=== PATIENT | male | born 1990 | race Caucasian/White ===

== ENCOUNTER 2019-06-08 20:04 | Emergency (ER) | payer MEDICAID, SELFPAY ==
[~2019-06-08] VITALS: Ht 180.3 cm; Wt 100.0 kg
[2019-06-08] MEDS ORDERED: LEXA5TAB13 PO (20:16)
[2019-06-08] MEDS ORDERED: diphenhydrAMINE INJ 50MG/ML VIAL (J1200) IV STA (21:02)
[2019-06-08] MEDS ORDERED: hydrOXYzine 50 MG TAB PO ONE (21:15)
[2019-06-08] MEDS ORDERED: methylPREDNISolone INJ 125 MG/2 ML VIAL (J2930) IV ONE (21:15)
[2019-06-08 22:39] LABS: BASO # 0.1 10^3/uL (0.0-0.2); BASO % 0.4 % (0.0-1.0); EOS % 0.2 % (0.0-3.0); HEMATOCRIT 42.1 % (42.0-52.0); HEMOGLOBIN 14.5 g/dl (13.5-17.5); LYMPH # 2.2 10^3/uL (1.5-6.5); MEAN CORPUSCULAR HEMOGLOBIN 30.1 pg (27.0-33.0); MEAN CORPUSCULAR HGB CONC 34.4 g/dl (32.0-36.5); MEAN CORPUSCULAR VOLUME 87.5 fl (80.0-96.0); MONO # 1.3 10^3/uL (0.0-0.8); MONO % 9.4 % (0.0-5.0); NEUTROPHILS % 73.9 % (36.0-66.0); PLATELET COUNT, AUTOMATED 248 10^3/uL (150-450); RED BLOOD COUNT 4.81 10^6/uL (4.30-6.10); WHITE BLOOD COUNT 13.6 10^3/uL (4.0-10.0)
[2019-06-08 23:14] LABS: ACETAMINOPHEN LEVEL < 2.0 UG/ML (10.0-30.0); BLOOD UREA NITROGEN 16 MG/DL (7-18); CALCIUM LEVEL 9.2 MG/DL (8.5-10.1); CARBON DIOXIDE LEVEL 28 MEQ/L (21-32); CHLORIDE LEVEL 104 MEQ/L (98-107); CREATININE FOR GFR 1.24 MG/DL (0.70-1.30); ETHYL ALCOHOL (ETHANOL) < 0.003 % (0.000-0.010); GLOMERULAR FILTRATION RATE > 60.0 (>60); GLUCOSE, FASTING 98 MG/DL (70-100); SALICYLATE LEVEL < 1.7 MG/DL (5.0-30.0); SODIUM LEVEL 141 MEQ/L (136-145)
[2019-06-08] MEDS ORDERED: MIRTAZAPINE 15 MG TAB PO STA (23:20)
[2019-06-08 23:22] LABS: AMPHETAMINES LEVEL URINE POSITIVE (NEGATIVE); BARBITURATES URINE NEGATIVE (NEGATIVE); BENZODIAZEPINES URINE NEGATIVE (NEGATIVE); CANNABINOIDS URINE NEGATIVE (NEGATIVE); COCAINE METABOLITE URINE NEGATIVE (NEGATIVE); METHADONE URINE NEGATIVE (NEGATIVE); OPIATES URINE NEGATIVE (NEGATIVE); PHENCYCLIDINE URINE NEGATIVE (NEGATIVE)
[2019-06-08] MEDS ORDERED: HYDR-3363 PO (23:32)
[2019-06-08] MEDS ORDERED: REME15TA2 PO (23:32)
[2019-06-08] MEDS ORDERED: LEXA1TAB PO (23:32)
[2019-06-08] MEDS ORDERED: PRED20TA PO (23:32)
[2019-06-08] MEDS ORDERED: REGL5TAB2 PO (23:36)
[2019-06-08 23:50] VITALS: BP 168/82
== END 2019-06-08 23:51 | disposition home or self-care (01) ==
LOC: M ED 20:04
DX: F41.9 Anxiety disorder, unspecified (principal); L50.9 Urticaria, unspecified; Z79.899 Other long term (current) drug therapy; F17.210 Nicotine dependence, cigarettes, uncomplicated
CPT/HCPCS: 80048; 80307; 84443; 85025; 96374; 96375; 99284; G0480; J1200; J2930

== ENCOUNTER 2019-06-11 11:42 | Inpatient (IN) | payer OTHER, SELFPAY ==
[~2019-06-11] VITALS: Ht 180.3 cm; Wt 96.2 kg
[~2019-06-11 11:42] MED LIST: HYDR-3363 PO; LEXA1TAB PO; LEXA5TAB13 PO; PRED20TA PO; REGL5TAB2 PO; REME15TA2 PO
[2019-06-11] MEDS ORDERED: DEPRESSION MED (11:54)
[2019-06-11 12:12] LABS: HEMATOCRIT 41.7 % (42.0-52.0); HEMOGLOBIN 13.9 g/dl (13.5-17.5); MEAN CORPUSCULAR HEMOGLOBIN 29.4 pg (27.0-33.0); MEAN CORPUSCULAR HGB CONC 33.3 g/dl (32.0-36.5); MEAN CORPUSCULAR VOLUME 88.2 fl (80.0-96.0); PLATELET COUNT, AUTOMATED 250 10^3/uL (150-450); RED BLOOD COUNT 4.73 10^6/uL (4.30-6.10); WHITE BLOOD COUNT 8.5 10^3/uL (4.0-10.0)
[2019-06-11 12:36] LABS: AMPHETAMINES LEVEL URINE POSITIVE (NEGATIVE); BARBITURATES URINE NEGATIVE (NEGATIVE); BENZODIAZEPINES URINE NEGATIVE (NEGATIVE); CANNABINOIDS URINE NEGATIVE (NEGATIVE); COCAINE METABOLITE URINE NEGATIVE (NEGATIVE); METHADONE URINE NEGATIVE (NEGATIVE); OPIATES URINE NEGATIVE (NEGATIVE); PHENCYCLIDINE URINE NEGATIVE (NEGATIVE)
[2019-06-11 12:49] LABS: ACETAMINOPHEN LEVEL < 2.0 UG/ML (10.0-30.0); ALBUMIN 3.9 GM/DL (3.2-5.2); ALT/SGPT 33 U/L (12-78); BILIRUBIN,DIRECT 0.1 MG/DL (0.0-0.2); BILIRUBIN,TOTAL 0.6 MG/DL (0.2-1.0); BLOOD UREA NITROGEN 15 MG/DL (7-18); CALCIUM LEVEL 8.8 MG/DL (8.5-10.1); CARBON DIOXIDE LEVEL 30 MEQ/L (21-32); CHLORIDE LEVEL 103 MEQ/L (98-107); CREATININE FOR GFR 1.08 MG/DL (0.70-1.30); ETHYL ALCOHOL (ETHANOL) < 0.003 % (0.000-0.010); GLOMERULAR FILTRATION RATE > 60.0 (>60); GLUCOSE, FASTING 105 MG/DL (70-100); POTASSIUM SERUM 4.2 MEQ/L (3.5-5.1); SALICYLATE LEVEL < 1.7 MG/DL (5.0-30.0); SODIUM LEVEL 140 MEQ/L (136-145); THYROID STIMULATING HORMONE 0.207 uIU/ML (0.358-3.740); TOTAL PROTEIN 7.3 GM/DL (6.4-8.2)
[2019-06-11] MEDS ORDERED: LISINOPRIL 10 MG TAB PO ONE (13:00)
[2019-06-11] MEDS ORDERED: amLODIPine 5 MG TAB PO ONE (14:15)
[2019-06-11 14:19] VITALS: BP 158/105
[2019-06-11] MEDS ORDERED: MAALOX 30 ML SUSP *UDC PO PRN (17:15)
[2019-06-11] MEDS ORDERED: ACETAMINOPHEN TAB 650MG DOSE (2X325MG) PO PRN (17:15)
[2019-06-11] MEDS ORDERED: HALOPERIDOL 5 MG TAB PO PRN (17:15)
[2019-06-11] MEDS ORDERED: HYDR-3363 PO (18:24)
[2019-06-11] MEDS ORDERED: MIRT1TAB15 PO (18:24)
[2019-06-11] MEDS ORDERED: ESCI10TA2 PO (18:25)
[2019-06-11] MEDS ORDERED: NICOTINE 21MG/24HR 1 EA TRANSDERMAL TD PRN (21:15)
[2019-06-11 21:16] VITALS: BP 132/90
[2019-06-12 06:45] VITALS: BP 127/69
[2019-06-12 08:00] VITALS: BP 127/69
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
[2019-06-12] MEDS ORDERED: BUPRENORPHINE/NALOXONE 2-0.5MG SUBLINGUAL TABLET(SUBOXONE) SL ONE (11:15)
[2019-06-12 16:37] VITALS: BP 123/59
--- NOTE | 2019-06-12 17:11 | HPEPDOC ---
General Date of Admission Jun 11, 2019 at 17:14 Date of Service: Jun 12, 2019 Chief Complaint The patient is a 28-year-old male admitted with a reason for visit of Unspecified Depressive Disorder. History of Present Illness 28-year-old male with no past medical history admitted to inpatient mental health unit for suicidal ideation and severe depression. Patient states that he was recently incarcerated for driving under intoxication and after he was released he expressed suicidal ideations to his mom who brought him today mental health unit. Patient states that he uses heroin and meth. He smokes 1-1/2 packs of cigarettes a day. Patient also states that his grandfather had schizophrenia. He denies any current suicidal ideations. Patient also mentions having high blood pressure once in a while. Home Medications Scheduled Escitalopram Oxalate (Escitalopram Oxalate) 10 Mg Tablet, 15 MG PO DAILY, (Reported) Mirtazapine (Mirtazapine) 15 Mg Tab.rapdis, 15 MG PO QHS, (Reported) Scheduled PRN Hydroxyzine HCl (Hydroxyzine HCl) 25 Mg Tablet, 25 MG PO TID PRN for ANXIETY, (Reported) Allergies Coded Allergies: No Known Allergies (Unverified , 06/08/19) Family History Grandfather with schizophrenia Social History * Smoker: greater than 1 pack/day Alcohol: occationally Psychosocial History: Depression, Emotional problems, Prior suicide attempt, Suicidal thoughts Review of Systems Constitutional: Denies: Chills, Fever, Malaise, Night Sweats, Weakness, Fatigue, Weight Loss, Lethargy, Other Eyes: Denies: Pain, Vision change, Conjunctivae inflammation, Eyelid inflammation, Redness, Other ENT: Denies: Head Aches, Ear Pain, Dysphagia, Sinus Congestion, Post Nasal Drip, Sore Throat, Epistaxis, Other Symptoms Skin: Denies: Rash, Lesions, Jaundice, Bruising, Itching, Dry, Breakdown, Nail Changes, Other Pulmonary: Denies: Dyspnea, Cough, Pleuritic Chest Pain, Other Symptoms Cardiovascular: Denies: Chest Pain, Palpitations, Orthopnea, Paroxysmal Noc. Dyspnea, Edema, Lt Headedness, Other Symptoms Gastrointestinal: Denies: Nausea, Vomiting, Abdominal Pain, Diarrhea, Constipation, Melena, Hematochezia, Other Symptoms Genitourinary: Denies: Dysuria, Frequency, Incontinence, Hematuria, Retention, Other Symptoms Hematologic: Denies: Bruising, Bleeding Excessively, Petecchia, Purpura, Enlarged Lymph Nodes, Other Hematologic Endocrine: Denies: Polydipsia, Polyphagia, Polyuria, Heat Intolerance, Cold Intolerance, Other Endocrine Sx Musculoskeletal: Denies: Neck Pain, Back Pain, Shoulder Pain, Arm Pain, Hand Pain, Leg Pain, Foot Pain, Joint Pain, Muscle Pain, Spasms, Other Symptoms Neurological: Denies: Weakness, Numbness, Incoordination, Change in speech, Confusion, Seizures, Other Symptoms Physical Examination General Exam: Positive: Alert, Cooperative, No Acute Distress Eye Exam: Positive: PERRLA, Conjunctiva & lids normal ENT Exam: Positive: Atraumatic, Mucous membr. moist/pink Neck Exam: Negative: Supple, JVD, thyromegaly, +2 carotid pulse wo bruit, Lymphadenopathy, Other Chest Exam: Positive: Clear to auscultation, Normal air movement Heart Exam: Positive: Rate Normal Abdomen Exam: Positive: Normal bowel sounds Neuro Exam: Positive: Normal Speech, Strength at 5/5 X4 ext Psych Exam: Positive: Mental status NL, Oriented x 3 Vital Signs Vital Signs Date Time Temp Pulse Resp B/P (MAP) Pulse Ox O2 Delivery O2 Flow Rate FiO2 06/12/19 16:37 97.9 89 16 123/59 (80) 06/12/19 08:00 97 06/11/19 17:54 Room Air Assessment/Plan #Depression with suicidal ideation -Continue management as per psychiatry -Patient on mirtazapine and Lexapro #Heroin and meth abuse/withdrawal -Elevated blood pressures due to withdrawal -Management per psych Plan / VTE VTE Prophylaxis Ordered?: No VTE Exclusion Mechanical Proph: Low Risk for VTE JAME RAIN MD Jun 12, 2019 17:11
[2019-06-12] MEDS ORDERED: MIRTAZAPINE 15 MG TAB PO SCH (21:00)
[2019-06-13 06:47] VITALS: BP 126/73
--- NOTE | 2019-06-13 09:12 | MHIPNPDOC ---
[facility] Progress Note Progress Note Date of Service: 06/13/2019 History of Present Illness The patient a 28-year-old man was brought to the emergency room by his mother. He had reportedly been recently released from custodial/shelter and had been sober from heroin for four months. He had relapsed shortly after his release and had been using quite frequently the previous day. His mother reported that he had gathered a large amount of heroin with an intention to overdose on it to . He was brought in and had initially denied that, however, upon meeting with the patient, he did describe having a fair amount of difficulty with suicidal thoughts at that time and had given the bags of heroin to his mother in order to dispose of as he was concerned about his safety. Interval History The patient was met with today. He describes that he feels much better on the Abilify with less mood variation, less anxiety and better ability to socialize and less fatigue and loss of interest. He reports no side effects. Denies tremors, akathisia or GI upset related to his medications. He has attended some groups, but generally remains fairly anxious around others. His mother visited yesterday and it was reportedly a good visit. He declined taking his Remeron, he reports it was not helpful. Discussed about Seroquel and the cost relation, he reports trying Seroquel in the past with negative results and does not wish to try. Review Of Systems As above. Psychotherapy None on this visit. Vital Signs Reviewed. Mental Status Examination General: Well dressed with good hygiene Speech: Spontaneous and fluid Thought processes: Linear and logical MSK: Smooth and coordinated gait, no signs of tremors or involuntary orofacial movements Thought content: Future orientated Abstract reasoning, and computation: Intact Description of associations: Intact Description of abnormal or psychotic thoughts: Denies any suicidal or homicidal ideation. Denies any auditory or visual hallucinations. Does not appear to be r esponding to internal stimuli. Does not appear to be endorsing any bizarre or paranoid ideation. Judgment: fair Insight: fair Orientation: Alert and orientated 3 Cognition: Grossly normal Recent and remote memory: Intact Attention span and concentration: Intact Fund of knowledge: Adequate Mood: "okay" Affect: Euthymic with a full range Diagnoses Unspecified bipolar disorder. Rule out mood variation from depression versus substance-induced versus borderline personality disorde. Opioid use disorder, severe. Tobacco use disorder, severe. Cocaine use disorder, unspecified. Assessment and Plan The patient appears to be making good improvement on Abilify, which is approved for a number of different conditions on the differential including depression, substance-induced bipolar and borderline personality disorder. We will continue Abilify 5 mg with a discharge tomorrow as patient wishes to go and does not meet involuntary criteria at this time. Disposition Likely discharge tomorrow. Time Spent 15 minutes face to face. Tuesday Vital Signs Vital Signs Date Time Temp Pulse Resp B/P (MAP) Pulse Ox O2 Delivery O2 Flow Rate FiO2 06/13/19 06:47 97.5 81 12 126/73 (90) 06/12/19 08:00 97 06/11/19 17:54 Room Air Current Medications Current Medications Medications (Trade) Dose Ordered Sig/Mariam Route PRN Reason Start Time Stop Time Status Last Admin Dose Admin Acetaminophen (Tylenol Tab) 650 mg Q6HP PRN PO HEADACHE or DISCOMFORT 06/11/19 17:15 Al Hydrox/Mg Hydrox/Simethicone (Mylanta) 30 ml Q4HP PRN PO HEARTBURN/INDIGESTION 06/11/19 17:15 Aripiprazole (AbiLIFY) 5 mg DAILY PO 06/13/19 09:00 06/13/19 09:00 DC Aripiprazole (AbiLIFY) 5 mg QHS PO 06/13/19 21:00 Haloperidol (Haldol) 5 mg Q6HP PRN PO ANXIETY/AGITATION 06/11/19 17:15 Home Med (Med Rec Complete!) ASDIRECTED XX 06/11/19 18:30 06/11/19 18:31 DC Mirtazapine (Remeron) 15 mg QHS PO 06/12/19 21:00 Nicotine (Nicoderm Cq 21mg) 1 patch DAILYPRN PRN TD NICOTINE WITHDRAWAL 06/11/19 21:15 Allergies Coded Allergies: No Known Allergies (Unverified , 06/08/19) NOEL ARZOLA DO Jun 13, 2019 09:12
[2019-06-13 18:00] VITALS: BP 131/64
[2019-06-13 19:36] VITALS: BP 126/73
[2019-06-14 06:48] VITALS: BP 125/71
--- NOTE | 2019-06-14 09:50 | MHDSPDOC ---
[facility] Discharge Summary Discharge Summary DATE OF ADMISSION: Jun 11, 2019 at 17:14 DATE OF DISCHARGE: 06/14/19 Date of Service: 06/14/2019 Diagnoses Unspecified bipolar disorder. Rule out mood variation from depression versus substance-induced versus borderline personality disorde. Opioid use disorder, severe. Tobacco use disorder, severe. Cocaine use disorder, unspecified. History of Present Illness The patient a 28-year-old man was brought to the emergency room by his mother. He had reportedly been recently released from assisted/halfway and had been sober from heroin for four months. He had relapsed shortly after his release and had been using quite frequently the previous day. His mother reported that he had gathered a large amount of heroin with an intention to overdose on it to . He was brought in and had initially denied that, however, upon meeting with the patient, he did describe having a fair amount of difficulty with suicidal thoughts at that time and had given the bags of heroin to his mother in order to dispose of as he was concerned about his safety. Consultants Involved Hospitalist/PCP screening Treatment and Progress On The Unit The patient was admitted to the unit and subsequently restarted on mirtazapine and Abilify 5 mg nightly. He reported that he did not like the mirtazapine after trying it and thus was continued on 5 mg of Abilify at night. He made significant improvements will less mood variation, anxiety, depression, loss of interest, and the suicidality had resolved shortly after he presented to the unit. He was observed for several days with no suicidal ideation or homicidal ideation, demonstrating no signs or symptoms of major mental illness that would impair him from taking care of his daily needs and when he had requested to leave, he declined a further voluntary admission and thus based on this providers clinical judgment, did not meet involuntary criteria and was discharged in good val with a supply of his Abilify as well as a GoodRx coupon so that he might be able to continue his medications even if his insurance lapses. Discharge Assessment The patient a 28-year-old man with an unspecified bipolar disorder that is more likely related to trauma versus borderline personality disorder, makes significant improvement with a low dose of Abilify suggesting primarily a substance-induced versus borderline personality disorder as a primary cause. Bipolar disorder cannot be excluded. However, further outpatient treatment will likely demonstrate whether substances are provoking cause for his mood variation. Mental Status Examination General: Well dressed with good hygiene Speech: Spontaneous and fluid Thought processes: Linear and logical MSK: Smooth and coordinated gait, no signs of tremors or involuntary orofacial movements Thought content: Future orientated Abstract reasoning, and computation: Intact Description of associations: Intact Description of abnormal or psychotic thoughts: Denies any suicidal or homicidal ideation. Denies any auditory or visual hallucinations. Does not appear to be responding to internal stimuli. Does not appear to be endorsing any bizarre or paranoid ideation. Judgment: fair Insight: fair Orientation: Alert and orientated 3 Cognition: Grossly normal Recent and remote memory: Intact Attention span and concentration: Intact Fund of knowledge: Adequate Mood: "okay" Affect: Euthymic with a full range Follow Up The social work team worked during the predischarge meeting in order to evaluate for further issues of lethality address them fully before discharge. They worked on safety planning with the patient's family members in order to ensure that the patient will have a safe and effective discharge. Time Spent The amount of time spent in the coordination of care for this patient was approximately 30 minutes. Vital Signs/I&Os Vital Signs Date Time Temp Pulse Resp B/P (MAP) Pulse Ox O2 Delivery O2 Flow Rate FiO2 06/14/19 06:48 98.7 82 12 125/71 (89) 06/13/19 19:36 97 06/11/19 17:54 Room Air Medications Scheduled Aripiprazole (Abilify) 5 Mg Tablet, 5 MG PO QHS for mood for 7 Days, #7 Scheduled PRN Haloperidol (Haloperidol) 5 Mg Tablet, 5 MG PO Q6HP PRN for ANXIETY/AGITATION for 7 Days, #7 Allergies Coded Allergies: No Known Allergies (Unverified , 06/08/19) NOEL ARZOLA DO Jun 14, 2019 09:50
[2019-06-14] MEDS ORDERED: ABIL1TAB11 PO (10:42)
[2019-06-14] MEDS ORDERED: HALO5TA PO (10:42)
== END 2019-06-14 11:05 | disposition home or self-care (01) | DRG 753 ==
LOC: M ED 11:42 → M ED INP 17:14 → M PSY 20:10
PROVIDERS: ADMIT Psychiatry & Neurology Addiction Medicine; ATTEND Psychiatry & Neurology Addiction Medicine
DX: F31.9 Bipolar disorder, unspecified (principal); F11.24 Opioid dependence with opioid-induced mood disorder; F14.10 Cocaine abuse, uncomplicated; F60.3 Borderline personality disorder; Z81.8 Family history of other mental and behavioral disorders; Z62.811 Personal history of psychological abuse in childhood; Z79.899 Other long term (current) drug therapy; Z65.2 Problems related to release from prison

== ENCOUNTER 2019-06-16 13:45 | Emergency (ER) | payer MEDICAID, SELFPAY ==
[~2019-06-16] VITALS: Ht 180.3 cm; Wt 93.6 kg
[~2019-06-16 13:45] MED LIST changes: +ABIL1TAB11 PO; +DEPRESSION MED; +ESCI10TA2 PO; +HALO5TA PO; +MIRT1TAB15 PO
[2019-06-16] MEDS ORDERED: diphenhydrAMINE INJ 50MG/ML VIAL (J1200) IV STA (13:58)
[2019-06-16] MEDS ORDERED: NS 1,000 ML IV ONE ×2 (14:00→15:00)
[2019-06-16 14:08] LABS: BASO # 0.1 10^3/uL (0.0-0.2); BASO % 0.5 % (0.0-1.0); EOS # 0.2 10^3/uL (0.0-0.50); HEMOGLOBIN 16.2 g/dl (13.5-17.5); LYMPH # 3.5 10^3/uL (1.5-6.5); LYMPH % 23.5 % (24.0-44.0); MEAN CORPUSCULAR HEMOGLOBIN 29.9 pg (27.0-33.0); MEAN CORPUSCULAR HGB CONC 33.1 g/dl (32.0-36.5); MEAN CORPUSCULAR VOLUME 90.6 fl (80.0-96.0); MONO # 1.3 10^3/uL (0.0-0.8); MONO % 8.6 % (0.0-5.0); NEUTROPHILS # 9.9 10^3/uL (1.8-7.7); PLATELET COUNT, AUTOMATED 313 10^3/uL (150-450); RED BLOOD COUNT 5.41 10^6/uL (4.30-6.10); WHITE BLOOD COUNT 15.1 10^3/uL (4.0-10.0)
[2019-06-16] MEDS ORDERED: LORazepam 2 MG/ML VIAL (J2060) IV STA (14:15)
[2019-06-16] MEDS ORDERED: BENZTROPINE MESYLATE 2MG/2ML VIAL IV ONE (14:30)
[2019-06-16 14:40] LABS: PLATELET CLUMPS SMALL AMT; PLATELET ESTIMATE NORMAL (NORMAL)
[2019-06-16 14:57] LABS: ALBUMIN 4.1 GM/DL (3.2-5.2); ALT/SGPT 28 U/L (12-78); BILIRUBIN,DIRECT < 0.1 MG/DL (0.0-0.2); BILIRUBIN,TOTAL 0.3 MG/DL (0.2-1.0); BLOOD UREA NITROGEN 11 MG/DL (7-18); CALCIUM LEVEL 9.4 MG/DL (8.5-10.1); CARBON DIOXIDE LEVEL 26 MEQ/L (21-32); CHLORIDE LEVEL 108 MEQ/L (98-107); CK-MB VALUE MASS < 1.0 NG/ML (<3.6); CPK CREATINE PHOSPHOKINASE 115 U/L (39-308); CREATININE FOR GFR 1.31 MG/DL (0.70-1.30); GLOMERULAR FILTRATION RATE > 60.0 (>60); GLUCOSE, FASTING 91 MG/DL (70-100); MB/CK RELATIVE INDEX 0.87 (< OR =4); POTASSIUM SERUM 5.1 MEQ/L (3.5-5.1); SODIUM LEVEL 141 MEQ/L (136-145); TOTAL PROTEIN 8.1 GM/DL (6.4-8.2); TROPONIN I < 0.02 NG/ML (< 0.10)
[2019-06-16] MEDS ORDERED: BENZ2TAB5 PO (17:25)
[2019-06-16 17:36] VITALS: BP 121/61
--- NOTE | 2019-06-17 07:13 | ECGEPIP ---
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
== END 2019-06-16 17:39 | disposition home or self-care (01) ==
LOC: M ED 13:45
DX: G24.02 Drug induced acute dystonia (principal); T43.4X5A Adverse effect of butyrophenone and thiothixene neuroleptics, initial encounter; R00.0 Tachycardia, unspecified; R25.2 Cramp and spasm; F32.9 Major depressive disorder, single episode, unspecified; Z91.030 Bee allergy status; J30.2 Other seasonal allergic rhinitis; Z79.899 Other long term (current) drug therapy; F17.200 Nicotine dependence, unspecified, uncomplicated
CPT/HCPCS: 36415; 80048; 80076; 82550; 82553; 85025; 93005; 93041; 94760; 96374; 96375; 99285; J1200